=== PATIENT | female | born 2000 ===

== ENCOUNTER → 2023-05-15 09:36 | Outpatient (BNV) | payer OTHER, SELFPAY ==
--- NOTE | 2023-05-15 09:36 | MHC.OFFVIS ---
Intake Intake Visit Reasons: Amb Documentation Allergies No Known Allergies Allergy (Verified 05/15/23 09:47) HPI HPI Comments History of Present Illness Details student here for test. not planned but I'd keep it . stopped depo 2 months ago because it was making her bloated and sad. partner uses condoms but they 'don't do it that often' used condom -2 weeks ago last time/broke. she did preg test yesterday and it was negative. she has 3 children. first time she was 4 months when found out , the other two urine detected early (3 weeks). she goes to [facility] for ob/gyne care - used depo and IUD (got on it). no other control - would be willing to go on OCP. prefers to know that she isn't . will use condoms in meantime. discussed plan b. she is nauseous and breast are sore. ON LICENSE OF [facility] Medical History (Updated 05/15/23 @ 09:47 by MARIKA Nolen) Depo-Provera contraceptive status COVID-19 vaccine series not completed Review of Systems Const Details: Counseling visit: All systems reviewed & are unremarkable except as noted in HPI and below Reports as per HPI Resp Reports as per HPI GI Reports as per HPI Musc Reports as per HPI Neuro Reports as per HPI Psych Reports as per HPI Physical Exam Const General: cooperative, healthy appearing and no acute distress Nutritional Appearance: well nourished Orientation/consciousness: oriented to person Limitations: no limitations HEENT Other: wnl Eyes Other: wnl Chest Other: easy breathing Resp Effort & Inspection: able to speak in complete sentences Skin Other: normal in appearance Neuro General: oriented to person Psych Other: see HPI Mental Status: mental status grossly normal Speech and movement: Clear speech present Attitude: cooperative Thought process: Normal thought process present Assessment & Plan Assessment & Plan (1) Unprotected sex: Code(s): Z72.51 - High risk heterosexual behavior (2) Irregular menses: Code(s): N92.6 - Irregular menstruation, unspecified (3) control counseling: Code(s): Z30.09 - Encounter for other general counseling and advice on contraception (4) Depo-Provera contraceptive status: Comment: STOPPED Code(s): Z30.42 - Encounter for surveillance of injectable contraceptive Plan urine test and counseling done. she would like to go on OCP but prefers to wait for period or negative blood test. ordered blood test. sign up to return after test is done or when on menses Orders: Orders AMB HCG Urine Test Today N92.6 - Irregular menstruation, unspecified, Z32.02 - Encounter for test, result negative HCG Quantitative Today N92.6 - Irregular menstruation, unspecified, Z72.51 - High risk heterosexual behavior Coding Level of Care Code Est Pt Level 3 (54675) Diagnoses Unprotected sex Z72.51 Irregular menses N92.6 control counseling Z30.09 Depo-Provera contraceptive status Z30.42 Time Spent (min) 20
== END ==
PROVIDERS: PCP Nurse Practitioner Family; Visit Provider Nurse Practitioner Family
DX: Z72.51 High risk heterosexual behavior (principal); N92.6 Irregular menstruation, unspecified; Z30.09 Encounter for other general counseling and advice on contraception; Z30.42 Encounter for surveillance of injectable contraceptive
CPT/HCPCS: 99213

== ENCOUNTER → 2023-06-03 15:17 | Outpatient (BNV) | payer OTHER, SELFPAY ==
--- NOTE | 2023-06-03 15:17 | MHC.OFFVIS ---
Intake Intake Visit Reasons: Amb Documentation Allergies No Known Allergies Allergy (Verified 05/15/23 09:47) HPI HPI Comments History of Present Illness Details student coming in - states that she had miscarriage. she was negative for when I saw her last but states that a few days later she still felt bad so she retook a test and it was positive and soon after she started bleeding and cramping and was told that she'd likely miscarried -(needs a negative test repeated and her blood pressure was a bit high 118/84 -) she has no history of blood pressure issue - nor during , reviewed fmh: no hisotry of clotting disorders or events. had been on depo but stopped that 2 months ago because was making her 'sad' and bloated. they also use condoms every time but one broke. uses [facility]. she stopped bleeding last and would like to go on OCP's she feels that she can remember to take them as she took meds for her mood once and never forgot them. [facility] Medical History (Updated 05/15/23 @ 09:47 by MARIKA Nolen) Depo-Provera contraceptive status COVID-19 vaccine series not completed Family History (Updated 06/03/23 @ 15:20 by MARIKA Nolen) Mother HTN (hypertension) Sister No problems noted. Sister No problems noted. Brother No problems noted. Son No problems noted. Son No problems noted. Daughter No problems noted. Review of Systems Const Details: Counseling visit: All systems reviewed & are unremarkable except as noted in HPI and below Reports as per HPI Resp Reports as per HPI GI Reports as per HPI Musc Reports as per HPI Neuro Reports as per HPI Psych Reports as per HPI Physical Exam Const General: cooperative, healthy appearing and no acute distress Nutritional Appearance: well nourished Orientation/consciousness: oriented to person Limitations: no limitations HEENT Other: wnl Eyes Other: wnl Chest Other: easy breathing Resp Effort & Inspection: able to speak in complete sentences Skin Other: normal in appearance Neuro General: oriented to person Psych Other: see HPI Mental Status: mental status grossly normal Speech and movement: Clear speech present Attitude: cooperative Thought process: Normal thought process present Assessment & Plan Assessment & Plan (1) Depo-Provera contraceptive status: Comment: STOPPED Code(s): Z30.42 - Encounter for surveillance of injectable contraceptive (2) control counseling: Code(s): Z30.09 - Encounter for other general counseling and advice on contraception Coding Level of Care Code Est Pt Level 3 (58783) Diagnoses Depo-Provera contraceptive status Z30.42 control counseling Z30.09 Time Spent (min) 20 Comment counseling and teaching
== END ==
PROVIDERS: PCP Nurse Practitioner Family; Visit Provider Nurse Practitioner Family
DX: Z30.42 Encounter for surveillance of injectable contraceptive (principal); Z30.09 Encounter for other general counseling and advice on contraception
CPT/HCPCS: 99213

== ENCOUNTER → 2023-06-04 09:38 | Outpatient (BNV) | payer OTHER, SELFPAY ==
--- NOTE | 2023-06-04 09:42 | MHC.OFFVIS ---
Intake Intake Visit Reasons: Amb Documentation Allergies No Known Allergies Allergy (Verified 05/15/23 09:47) HPI HPI Comments History of Present Illness Details here for follow up on yesterdays visit - bp was borderline high but reading felt inaccurate. repeated today 110/72. she is smiling and more interactive today. teaching done about control pills and follow up in a week. to start today. prescription didn't stay in computer so I will reload it today - sent w/ teaching done [facility] Medical History (Updated 06/04/23 @ 09:49 by MARIKA Nolen) Oral contraception initiation Depo-Provera contraceptive status COVID-19 vaccine series not completed Family History Mother HTN (hypertension) Sister No problems noted. Sister No problems noted. Brother No problems noted. Son No problems noted. Son No problems noted. Daughter No problems noted. Review of Systems Const Details: Counseling visit: All systems reviewed & are unremarkable except as noted in HPI and below Reports as per HPI Resp Reports as per HPI GI Reports as per HPI Musc Reports as per HPI Neuro Reports as per HPI Psych Reports as per HPI Physical Exam Const General: cooperative, healthy appearing and no acute distress Nutritional Appearance: well nourished Orientation/consciousness: oriented to person Limitations: no limitations HEENT Other: wnl Eyes Other: wnl Chest Other: easy breathing Resp Effort & Inspection: able to speak in complete sentences Skin Other: normal in appearance Neuro General: oriented to person Psych Other: see HPI Mental Status: mental status grossly normal Speech and movement: Clear speech present Attitude: cooperative Thought process: Normal thought process present Assessment & Plan Assessment & Plan (1) Oral contraception initiation: Code(s): Z30.011 - Encounter for initial prescription of contraceptive pills Plan teaching done - encouraged follow up w/ onsite counselor Orders: Orders AMB HCG Urine Test Today N92.6 - Irregular menstruation, unspecified, Z32.02 - Encounter for test, result negative, Z72.51 - High risk heterosexual behavior Medications: New norethindrone-e.estradiol-iron 1 mg-20 mcg (21)/75 mg (7) (Loestrin Fe 08/30 (28-Day)) 1 tab PO DAILY 28 tabs 2RF Coding Level of Care Code Est Pt Level 3 (60701) Diagnoses Oral contraception initiation Z30.011
== END ==
PROVIDERS: PCP Nurse Practitioner Family; Visit Provider Nurse Practitioner Family
DX: Z30.011 Encounter for initial prescription of contraceptive pills (principal)
CPT/HCPCS: 99213

== ENCOUNTER → 2023-06-09 10:21 | Outpatient (BNV) | payer OTHER, SELFPAY ==
--- NOTE | 2023-06-09 10:21 | MHC.OFFVIS ---
Intake Intake Visit Reasons: Amb Documentation Allergies No Known Allergies Allergy (Verified 05/15/23 09:47) HPI HPI Comments History of Present Illness Details Justice coming to discuss her control pills.? She finally got them. ?should I start them??.? Referred her to instructions given to her? - she has not had sex, so yes, immediate start ? reinforced back up method or no intercourse for 7 days.? She doesn?t feel this will be a problem.? Lengthy consultation w/ counselor onsite ? Viri hernandez to reinforce teaching.? She?d reportedly had a miscarriage though this was never confirmed medically. (neg hcg done at last visit) [facility] Medical History Oral contraception initiation Depo-Provera contraceptive status COVID-19 vaccine series not completed Family History Mother HTN (hypertension) Sister No problems noted. Sister No problems noted. Brother No problems noted. Son No problems noted. Son No problems noted. Daughter No problems noted. Review of Systems Const Details: Counseling visit: All systems reviewed & are unremarkable except as noted in HPI and below Reports as per HPI Resp Reports as per HPI GI Reports as per HPI Musc Reports as per HPI Neuro Reports as per HPI Psych Reports as per HPI Physical Exam Const General: cooperative, healthy appearing and no acute distress Nutritional Appearance: well nourished Orientation/consciousness: oriented to person Limitations: no limitations HEENT Other: wnl Eyes Other: wnl Chest Other: easy breathing Resp Effort & Inspection: able to speak in complete sentences Skin Other: normal in appearance Neuro General: oriented to person Psych Other: see HPI Mental Status: mental status grossly normal Speech and movement: Clear speech present Attitude: cooperative Thought process: Normal thought process present Assessment & Plan Assessment & Plan (1) Oral contraception initiation: Code(s): Z30.011 - Encounter for initial prescription of contraceptive pills (2) control counseling: Code(s): Z30.09 - Encounter for other general counseling and advice on contraception Plan PLAN 1)? Follow up w/ her after a few days on pills to confirm no side effects/review SE?s 2)? Present w/ new OCP instructions sheet that reviews more than how to start it 3)? Follow up in a week to recheck bp. Coding Level of Care Code Est Pt Level 4 (56067) Diagnoses Oral contraception initiation Z30.011 control counseling Z30.09 Time Spent (min) 25 Comment counseling and coord of team
== END ==
PROVIDERS: PCP Nurse Practitioner Family; Visit Provider Nurse Practitioner Family
DX: Z30.011 Encounter for initial prescription of contraceptive pills (principal); Z30.09 Encounter for other general counseling and advice on contraception
CPT/HCPCS: 99214

== ENCOUNTER → 2023-06-19 09:59 | Outpatient (BNV) | payer OTHER, SELFPAY ==
--- NOTE | 2023-06-19 09:59 | A.OFFVIS_ITS ---
Intake Intake Visit Reasons: Amb Documentation Allergies No Known Allergies Allergy (Verified 05/15/23 09:47) HPI HPI Comments History of Present Illness Details 06/19/23 Rayshawn Macias ? 01 Follow up on ocp use.? She is doing well, remembering pills every day and no complaints ? no nausea, no headache and no more serious complaints.? Bp is 120/84 today right arm. She is happy on pills and would like refills ? normally goes to [facility] for ob care and knows how to make appt there but I will get her refills started so that ths doesn?t run out. mood: states shes ok - PLAN: Follow up in 1 month ? check bp and ocp use Renew rx ? if I can I will do the 3 month refills that she is used to getting - done [facility] Medical History Oral contraception initiation Depo-Provera contraceptive status COVID-19 vaccine series not completed Family History Mother HTN (hypertension) Sister No problems noted. Sister No problems noted. Brother No problems noted. Son No problems noted. Son No problems noted. Daughter No problems noted. Review of Systems Const Details: Counseling visit: All systems reviewed & are unremarkable except as noted in HPI and below Reports as per HPI Resp Reports as per HPI GI Reports as per HPI Musc Reports as per HPI Neuro Reports as per HPI Psych Reports as per HPI Physical Exam Vital Signs: 120/84 Const General: cooperative, healthy appearing and no acute distress Nutritional Appearance: well nourished Orientation/consciousness: oriented to person Limitations: no limitations HEENT Other: wnl Eyes Other: wnl Chest Other: easy breathing Resp Effort & Inspection: able to speak in complete sentences Skin Other: normal in appearance Neuro General: oriented to person Psych Other: see HPI Mental Status: mental status grossly normal Speech and movement: Clear speech present Attitude: cooperative Thought process: Normal thought process present Assessment & Plan Assessment & Plan (1) Oral contraceptive pill surveillance: Code(s): Z30.41 - Encounter for surveillance of contraceptive pills Plan PLAN: Follow up in 1 month ? check bp again and consistency of ocp use Renew rx ? if I can I will do the 3 month refills that she is used to getting - done Coding Level of Care Code Est Pt Level 3 (99745) Diagnoses Oral contraceptive pill surveillance Z30.41 Time Spent (min) 15 Comment teaching /review of s/s to monitor
== END ==
PROVIDERS: PCP Nurse Practitioner Family; Visit Provider Nurse Practitioner Family
DX: Z30.41 Encounter for surveillance of contraceptive pills (principal)
CPT/HCPCS: 99213

== ENCOUNTER → 2023-07-08 11:06 | Outpatient (BNV) | payer OTHER, SELFPAY ==
--- NOTE | 2023-07-08 11:06 | A.OFFVIS_ITS ---
Intake Intake Visit Reasons: Amb Documentation Allergies No Known Allergies Allergy (Verified 05/15/23 09:47) HPI HPI Comments History of Present Illness Details student states that allergies are acting up do you have sinus medicaiton? - she uses claritin normally. she isn't - on ocp.(feeling well on them) [facility] Medical History Oral contraception initiation Depo-Provera contraceptive status COVID-19 vaccine series not completed Family History Mother HTN (hypertension) Sister No problems noted. Sister No problems noted. Brother No problems noted. Son No problems noted. Son No problems noted. Daughter No problems noted. Review of Systems Const Details: Counseling visit: All systems reviewed & are unremarkable except as noted in HPI and below Reports as per HPI Resp Reports as per HPI GI Reports as per HPI Musc Reports as per HPI Neuro Reports as per HPI Psych Reports as per HPI Physical Exam Const General: cooperative, healthy appearing and no acute distress Nutritional Appearance: well nourished Orientation/consciousness: oriented to person Limitations: no limitations HEENT Other: wnl Eyes Other: wnl Chest Other: easy breathing Resp Effort & Inspection: able to speak in complete sentences Skin Other: normal in appearance Neuro General: oriented to person Psych Other: see HPI Mental Status: mental status grossly normal Speech and movement: Clear speech present Attitude: cooperative Thought process: Normal thought process present Assessment & Plan Assessment & Plan (1) Seasonal allergies: Code(s): J30.2 - Other seasonal allergic rhinitis Medications: New loratadine (Claritin) 10 mg PO DAILY 90 tabs 0RF 3 months Coding Level of Care Code Est Pt Level 2 (70188) Diagnoses Seasonal allergies J30.2 Time Spent (min) 10
== END ==
PROVIDERS: PCP Nurse Practitioner Family; Visit Provider Nurse Practitioner Family
DX: J30.2 Other seasonal allergic rhinitis (principal)
CPT/HCPCS: 99212

== ENCOUNTER → 2023-08-21 10:30 | Outpatient (BNV) | payer OTHER, SELFPAY ==
--- NOTE | 2023-08-21 10:30 | MHC.OFFVIS ---
Intake Intake Visit Reasons: Amb Documentation Allergies No Known Allergies Allergy (Verified 05/15/23 09:47) HPI HPI Comments History of Present Illness Details following up on visit (had infected looking piercing - surrounded by 2-3 mm redness) was instructed to clean w/ alcohol and apply bacitracin. today states clear and feels well. [facility] Medical History Oral contraception initiation Depo-Provera contraceptive status COVID-19 vaccine series not completed Family History Mother HTN (hypertension) Sister No problems noted. Sister No problems noted. Brother No problems noted. Son No problems noted. Son No problems noted. Daughter No problems noted. Review of Systems Const Details: Counseling visit: All systems reviewed & are unremarkable except as noted in HPI and below Reports as per HPI Resp Reports as per HPI GI Reports as per HPI Musc Reports as per HPI Neuro Reports as per HPI Psych Reports as per HPI Physical Exam Const General: cooperative, healthy appearing and no acute distress Nutritional Appearance: well nourished Orientation/consciousness: oriented to person Limitations: no limitations HEENT Other: wnl Eyes Other: wnl Chest Other: easy breathing Resp Effort & Inspection: able to speak in complete sentences Skin Other: was 2-3 mm of redness no drainage - today is clear Neuro General: oriented to person Psych Other: see HPI Mental Status: mental status grossly normal Speech and movement: Clear speech present Attitude: cooperative Thought process: Normal thought process present Assessment & Plan Assessment & Plan (1) Pierced belly button infection: Code(s): S31.135A - Puncture wound of abdominal wall without foreign body, periumbilic region without penetration into peritoneal cavity, initial encounter; L08.9 - Local infection of the skin and subcutaneous tissue, unspecified Plan: keep clean w/ alcohol and bacitracin. return for follow up - is clear Coding Level of Care Code Est Pt Level 2 (91968) Diagnoses Pierced belly button infection S31.135A; L08.9 Time Spent (min) 15
== END ==
PROVIDERS: PCP Nurse Practitioner Family; Visit Provider Nurse Practitioner Family
DX: S31.135A Puncture wound of abdominal wall without foreign body, periumbilic region without penetration into peritoneal cavity, initial encounter (principal); L08.9 Local infection of the skin and subcutaneous tissue, unspecified
CPT/HCPCS: 99212

== ENCOUNTER → 2023-09-03 09:33 | Outpatient (BNV) | payer OTHER, SELFPAY ==
--- NOTE | 2023-09-03 09:33 | MHC.OFFVIS ---
Intake Intake Visit Reasons: Amb Documentation Allergies No Known Allergies Allergy (Verified 05/15/23 09:47) HPI HPI Comments History of Present Illness Details student states that she broke out in hives after swimming class yesterday. she used cortisone cream and it helped. the rash has cleared except on her legs. refuses exam. states red circular dry patches that are very itchy - she's had before she thinks in response to her clothing/detergent. she doesn't want to be excused from swimming. she will try it one more time and see if that happens again in which case we will excuse her from swimming - she does like it- swimming classes and then they play around in the water when they finish the classes. no distress noted. secondarily: she had missed a pill, saw BOOKING OFFICER here and was instructed on what to do when misses a pill. she got her period. so no worries currently about . [facility] Medical History Oral contraception initiation Depo-Provera contraceptive status COVID-19 vaccine series not completed Family History Mother HTN (hypertension) Sister No problems noted. Sister No problems noted. Brother No problems noted. Son No problems noted. Son No problems noted. Daughter No problems noted. Review of Systems Const Details: Counseling visit: All systems reviewed & are unremarkable except as noted in HPI and below Reports as per HPI Resp Reports as per HPI GI Reports as per HPI Musc Reports as per HPI Skin/Breast Reports system reviewed and no additional complaints, except as documented Neuro Reports as per HPI Psych Reports as per HPI Physical Exam Const General: cooperative, healthy appearing and no acute distress Nutritional Appearance: well nourished Orientation/consciousness: oriented to person Limitations: no limitations HEENT Other: wnl Eyes Other: wnl Chest Other: easy breathing Resp Effort & Inspection: able to speak in complete sentences Skin Other: normal in appearance - where visible - refusing to remove clothing in school clinic space, to show the rash , she just wants cortison cream because it's itchy. General skin exam: no rashes or lesions noted (on visible exposed skin) Neuro General: oriented to person Psych Other: see HPI Mental Status: mental status grossly normal Speech and movement: Clear speech present Attitude: cooperative Thought process: Normal thought process present Assessment & Plan Assessment & Plan (1) Urticaria of unknown origin: Code(s): L50.9 - Urticaria, unspecified Plan: 1% cortisone packet given to student today, w/ instructions to call pcp or return to office if no resolution by tomorrow. suggested applying aquaphor during the winter to manage dry skin - particularly after swimming, wash chlorine off w/ her own soap and apply (2) Oral contraceptive pill surveillance: Code(s): Z30.41 - Encounter for surveillance of contraceptive pills Plan: reviewed missed pill protocol Medications: New white petrolatum 41% (Aquaphor Healing) apply liberally during winter months 1 appl topical BID PRN 85 grams 2RF dry skin Coding Level of Care Code Est Pt Level 2 (29248) Diagnoses Urticaria of unknown origin L50.9 Oral contraceptive pill surveillance Z30.41 Time Spent (min) 15 Comment counseling/teaching
== END ==
PROVIDERS: PCP Nurse Practitioner Family; Visit Provider Nurse Practitioner Family
DX: L50.9 Urticaria, unspecified (principal); Z30.41 Encounter for surveillance of contraceptive pills
CPT/HCPCS: 99212

== ENCOUNTER → 2023-09-25 10:55 | Outpatient (BNV) | payer OTHER, SELFPAY ==
--- NOTE | 2023-09-25 10:55 | A.OFFVIS_ITS ---
Intake Intake Visit Reasons: Amb Documentation Allergies No Known Allergies Allergy (Verified 05/15/23 09:47) HPI HPI Comments History of Present Illness Details review screenings again. depression and crafft. both negative - no changes for student [facility] Medical History Oral contraception initiation Depo-Provera contraceptive status COVID-19 vaccine series not completed Family History Mother HTN (hypertension) Sister No problems noted. Sister No problems noted. Brother No problems noted. Son No problems noted. Son No problems noted. Daughter No problems noted. Questionnaire PHQ-9 Over the last 2 weeks, how often have you been bothered by any of the following problems? 1. Little interest or pleasure in doing things: several days 2. Feeling down, depressed, or hopeless: several days 3. Trouble falling or staying asleep, or sleeping too much: several days 4. Feeling tired or having little energy: not at all 5. Poor appetite or overeating: not at all 6. Feeling bad about yourself - or that you are a failure or have let yourself or your family down: not at all 7. Trouble concentrating on things, such as reading the newspaper or watching television: not at all 8. Moving or speaking so slowly that other people could have noticed. Or the opposite - being so fidgety or restless that you have been moving around a lot more than usual: not at all 9. Thoughts that you would be better off or of hurting yourself in some way: not at all Total score: 3 Depression Screening Interpretation: Negative Depression Screening Done: Yes 22864 - PHQ-9 Billing: Yes Source: Developed by Drs. Jez Glass, Bhavya Whyte, Ramon Norris and colleagues, with an educational zaira from [employer]. CRAFFT Screening Tool PART A: In the PAST 12 MONTHS, did you: Drink any alcohol (more than few sips)? (Do not count sips of alcohol taken during family or jew events.): Yes Smoke any marijuana or hashish?: Yes Use anything else to get high? (includes illegal drugs, over the counter/prescription drugs, or things that you sniff/lange?): No PART B: If answered YES to ANY above: Have you ever been in a CAR driven by someone (including yourself) who was high or had been using alcohol or drugs?: No Do you ever use alcohol or drugs to RELAX, feel better about yourself, or fit in?: No Do you ever use alcohol or drugs while you are by yourself, or ALONE?: No Do you ever FORGET things while using alcohol or drugs?: No Do your FAMILY or FRIENDS ever tell you that you should cut down on your drinking or drug use?: No Have you ever gotten into TROUBLE while you were using alcohol or drugs?: No details: minimal use - only 1 time of alcohol or marijuana ins last 12 months CRAFFT Assessment [id number] (no current issue noted) Review of Systems Const Details: Counseling visit: All systems reviewed & are unremarkable except as noted in HPI and below Reports as per HPI Resp Reports as per HPI GI Reports as per HPI Musc Reports as per HPI Neuro Reports as per HPI Psych Reports as per HPI Physical Exam Const General: cooperative, healthy appearing and no acute distress Nutritional Appearance: well nourished Orientation/consciousness: oriented to person Limitations: no limitations HEENT Other: wnl Eyes Other: wnl Chest Other: easy breathing Resp Effort & Inspection: able to speak in complete sentences Skin Other: normal in appearance Neuro General: oriented to person Psych Other: see HPI Mental Status: mental status grossly normal Speech and movement: Clear speech present Attitude: cooperative Thought process: Normal thought process present Assessment & Plan Assessment & Plan (1) Depression screening negative: Code(s): Z13.31 - Encounter for screening for depression (2) Counseling and coordination of care: Code(s): Z71.89 - Other specified counseling Plan continue to assess and coord care to support student Quality Reporting (2019) Depression/Bipolar (159/160/161/177) PHQ-9: Total score: 3 Coding Level of Care Code Est Pt Level 2 (72443) Diagnoses Depression screening negative Z13.31 Counseling and coordination of care Z71.89 Additional Codes CRAFFT Assessment Charge - Cradottiet: JESSICAT 20002 ([id number]) Time Spent (min) 10 Comment charting, counseling and coord of care
== END ==
PROVIDERS: PCP Nurse Practitioner Family; Visit Provider Nurse Practitioner Family
DX: Z13.31 Encounter for screening for depression (principal); Z71.89 Other specified counseling
CPT/HCPCS: 96160; 99212

== ENCOUNTER → 2023-10-13 10:02 | Outpatient (BNV) | payer OTHER, SELFPAY ==
--- NOTE | 2023-10-13 10:02 | A.OFFVIS_ITS ---
Intake Intake Visit Reasons: Amb Documentation Allergies No Known Allergies Allergy (Verified 05/15/23 09:47) HPI HPI Comments History of Present Illness Details student coming in for follow up. was hosptialized for blood clots in both legs - needed an excuse to get out of sports. she hasnt been on blood thinners- [facility]ign [facility] called [facility]. she doesnt have discharge paperwork. she doesnt seem to understand the urgency to this 1) she is to call pcp and get someone fo llowoing up on this. she will also get her d/c paperwork to me - she states that she has follow up on friday with pcp 2) consult yamini hernandez - needs to get on blood thinners. she has pulled student from class to get this dealt with 3) conversation about control - sh nitin is not having sex because she doesnt feel like it - discussed the risks of estrogen and worry about - preventing is medical issue now 4)i [facility] = no blood thinners are t here. they only had one month of control pills but i think she got them thorugh mail order on further investigation: student states that she HAS seen her primary doc and that they are not putting her on blood thinners - that they are just going to monitor her because the clots are small . she has a follow up on friday [facility] Medical History (Updated 10/13/23 @ 10:08 by MARIKA Nolen) Deep vein blood clot of right lower extremity Deep vein blood clot of left lower extremity Oral contraception initiation Depo-Provera contraceptive status COVID-19 vaccine series not completed Family History Mother HTN (hypertension) Sister No problems noted. Sister No problems noted. Brother No problems noted. Son No problems noted. Son No problems noted. Daughter No problems noted. Review of Systems Const Details: Counseling visit: All systems reviewed & are unremarkable except as noted in HPI and below Reports as per HPI Resp Reports as per HPI GI Reports as per HPI Musc Reports as per HPI Neuro Reports as per HPI Psych Reports as per HPI Physical Exam Const Other: no discomfort noted - gait is normal and she has no complaints of pain General: cooperative, healthy appearing and no acute distress Nutritional Appearance: well nourished Orientation/consciousness: oriented to person Limitations: no limitations HEENT Other: wnl Eyes Other: wnl Chest Other: easy breathing Resp Effort & Inspection: able to speak in complete sentences Skin Other: normal in appearance Neuro General: oriented to person Psych Other: see HPI Mental Status: mental status grossly normal Speech and movement: Clear speech present Attitude: cooperative Thought process: Normal thought process present Assessment & Plan Assessment & Plan (1) Deep vein blood clot of right lower extremity: Code(s): I82.401 - Acute embolism and thrombosis of unspecified deep veins of right lower extremity (2) Deep vein blood clot of left lower extremity: Code(s): I82.402 - Acute embolism and thrombosis of unspecified deep veins of left lower extremity (3) Counseling and coordination of care: Code(s): Z71.89 - Other specified counseling (4) control counseling: Code(s): Z30.09 - Encounter for other general counseling and advice on contraception Plan extensive counseling and coord care - student presented w. story that didn;t hold up - investigated and further consultation - she is not on blood thinners intentionally. pete will continue to support studetn. NEEDS control discussions - suggested w/ pcp but pete/myself to monitor Coding Level of Care Code Est Pt Level 4 (38168) Diagnoses Deep vein blood clot of right lower extremity I82.401 Deep vein blood clot of left lower extremity I82.402 Counseling and coordination of care Z71.89 control counseling Z30.09 Time Spent (min) 30 Comment cousneling and coord care
== END ==
PROVIDERS: PCP Nurse Practitioner Family; Visit Provider Nurse Practitioner Family
DX: I82.401 Acute embolism and thrombosis of unspecified deep veins of right lower extremity (principal); I82.402 Acute embolism and thrombosis of unspecified deep veins of left lower extremity; Z71.89 Other specified counseling; Z30.09 Encounter for other general counseling and advice on contraception
CPT/HCPCS: 99214

== ENCOUNTER → 2023-11-04 10:46 | Outpatient (BNV) | payer OTHER, SELFPAY ==
--- NOTE | 2023-11-04 10:46 | A.OFFVIS_ITS ---
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 she states that she was told she's all clear, but then just yesterday started having pain in her legs again. called her pcp. she doesnt feel that she knows what this is about - she iwll call pcp and make appt or get advice control? she is not having sex beause she is worried about the blood clots and has no control [facility] Medical History Deep vein blood clot of right lower extremity Deep vein blood clot of left lower extremity Oral contraception initiation Depo-Provera contraceptive status COVID-19 vaccine series not completed Family History Mother HTN (hypertension) Sister No problems noted. Sister No problems noted. Brother No problems noted. Son No problems noted. Son No problems noted. Daughter No problems noted. Review of Systems Const Details: recent c.o of leg pain returning All systems reviewed & are unremarkable except as noted in HPI and below Reports as per HPI Resp Reports as per HPI GI Reports as per HPI Musc Reports as per HPI Neuro Reports as per HPI Psych Reports as per HPI Physical Exam Const General: cooperative, healthy appearing and no acute distress Nutritional Appearance: well nourished Orientation/consciousness: oriented to person Limitations: no limitations HEENT Other: wnl Eyes Other: wnl Chest Other: easy breathing Resp Effort & Inspection: able to speak in complete sentences Skin Other: normal in appearance Neuro General: oriented to person Extrem Other: refused exam of legs General: Yes normal to inspection Psych Other: see HPI Mental Status: mental status grossly normal Speech and movement: Clear speech present Attitude: cooperative Thought process: Normal thought process present Assessment & Plan Assessment & Plan (1) Leg pain: Code(s): M79.606 - Pain in leg, unspecified (2) History of blood clots: Code(s): Z86.718 - Personal history of other venous thrombosis and embolism Plan i am unable to approve for activities - she will see her pcp - [facility] w. her counselor she will make sure she gets follow up Coding Level of Care Code Est Pt Level 2 (38802) Diagnoses Leg pain M79.606 History of blood clots Z86.718 Time Spent (min) 15
== END ==
PROVIDERS: PCP Nurse Practitioner Family; Visit Provider Nurse Practitioner Family
DX: M79.606 Pain in leg, unspecified (principal); Z86.718 Personal history of other venous thrombosis and embolism
CPT/HCPCS: 99212

== ENCOUNTER → 2023-11-06 09:57 | Outpatient (BNV) | payer OTHER, SELFPAY ==
--- NOTE | 2023-11-06 09:58 | MHC.OFFVIS ---
Intake Intake Visit Reasons: Amb Documentation Allergies No Known Allergies Allergy (Verified 05/15/23 09:47) HPI HPI Comments History of Present Illness Details student seen - walking no limp, states tired but is feeling fine, had dentist appt yesterday that's why she missed school - short of breath coming up stairs (within a normal range) no leg pain any more. she is oked for sports. coord w. team [facility] Medical History Deep vein blood clot of right lower extremity Deep vein blood clot of left lower extremity Oral contraception initiation Depo-Provera contraceptive status COVID-19 vaccine series not completed Family History Mother HTN (hypertension) Sister No problems noted. Sister No problems noted. Brother No problems noted. Son No problems noted. Son No problems noted. Daughter No problems noted. Review of Systems Const All systems reviewed & are unremarkable except as noted in HPI and below Reports as per HPI Resp Reports as per HPI GI Reports as per HPI Musc Reports as per HPI Neuro Reports as per HPI Psych Reports as per HPI Physical Exam Const General: cooperative, healthy appearing, no acute distress and tired appearing Nutritional Appearance: well nourished Orientation/consciousness: patient oriented x3 Limitations: no limitations HEENT Other: wnl Eyes Other: wnl Chest Other: easy breathing Resp Effort & Inspection: able to speak in complete sentences Skin Other: normal in appearance Neuro General: patient oriented x3 Extrem General: Yes normal to inspection and Yes normal gait Psych Other: see HPI Mental Status: mental status grossly normal Speech and movement: Clear speech present Attitude: cooperative Thought process: Normal thought process present Assessment & Plan Assessment & Plan (1) History of blood clots: Code(s): Z86.718 - Personal history of other venous thrombosis and embolism (2) Leg pain: Code(s): M79.606 - Pain in leg, unspecified Plan pain and problems seems resolved - ok'd for sports s.s to watch for and report Coding Level of Care Code Est Pt Level 2 (37542) Diagnoses History of blood clots Z86.718 Leg pain M79.606 Time Spent (min) 12 Comment coord and counseling.
== END ==
PROVIDERS: PCP Nurse Practitioner Family; Visit Provider Nurse Practitioner Family
DX: Z86.718 Personal history of other venous thrombosis and embolism (principal); M79.606 Pain in leg, unspecified
CPT/HCPCS: 99212